=== PATIENT | female | born 1995 | race Caucasian/White ===

== ENCOUNTER 2017-09-10 12:50 | Observation (INO) | payer OTHER ==
[~2017-09-10] VITALS: Ht 154.9 cm; Wt 99.3 kg
== END 2017-09-10 13:55 | disposition home or self-care (01) ==
LOC: SPU 12:50
PROVIDERS: ADMIT Obstetrics & Gynecology; ATTEND Obstetrics & Gynecology
DX: Z34.93 Encounter for supervision of normal pregnancy, unspecified, third trimester (principal); Z3A.36 36 weeks gestation of pregnancy
CPT/HCPCS: 81002; G0378

== ENCOUNTER 2017-09-12 17:45 | Observation (INO) | payer OTHER ==
[~2017-09-12] VITALS: Ht 154.9 cm; Wt 99.3 kg
[2017-09-12] MEDS ORDERED: LR 1,000 ML IV SCH (18:24)
[2017-09-12 18:51] LABS: BILIRUBIN,URINE NEGATIVE (NEGATIVE); CLARITY/URINE CLEAR (CLEAR); COLOR,URINE YELLOW (YELLOW); GLUCOSE,URINE NEGATIVE (NEGATIVE); KETONES,URINE NEGATIVE (NEGATIVE); LEUKOCYTE ESTERASE ,URINE NEGATIVE (NEGATIVE); NITRITE, URINE NEGATIVE (NEGATIVE); PH,URINE 5.5 (5.0-8.0); PROTEIN URINE NEGATIVE (NEGATIVE); UROBILINOGEN,URINE 0.2 (0.2-1.0)
[2017-09-12 18:59] LABS: BLOOD, URINE TRACE (NEGATIVE)
[2017-09-12 19:00] LABS: BACTERIA,URINE FEW /HPF (None Seen); RBC,URINE 0-3 /HPF (0-3); WBC,URINE 0-3 /HPF (0-3)
[2017-09-12 19:01] LABS: MUCUS,URINE None Seen /LPF (None Seen)
[2017-09-12 19:02] LABS: BASOPHILS % (AUTO) 0.5 % (0.0-2.0); EOSINOPHILS # (AUTO) 0.1 K/uL (0.0-0.4); HEMATOCRIT 33.5 % (36-48); HEMOGLOBIN 11.4 g/dL (12.0-16.0); LYMPHOCYTES # (AUTO) 1.7 K/uL (1.0-5.5); LYMPHOCYTES % (AUTO) 19.6 % (20.5-51.5); MEAN CORPUSCULAR HEMOGLOBIN 27 pg (27-31); MEAN CORPUSCULAR HGB CONC 34 % (32-36); MEAN CORPUSCULAR VOLUME 78 fL (79.0-98.0); MONOCYTES # (AUTO) 0.5 K/uL (0.0-1.0); MONOCYTES % (AUTO) 5.3 % (1.7-9.3); NEUTROPHILS # (AUTO) 6.5 K/uL (1.8-7.7); NEUTROPHILS % (AUTO) 73.6 % (40.0-70.0); PLATELET COUNT (AUTO) 186 K/uL (130-430); RED BLOOD CELL COUNT(AUTO) 4.29 MIL/uL (4.2-6.2); RED CELL DISTRIBUTION WIDTH 17.6 % (9.0-15.0); WHITE BLOOD COUNT (AUTO) 8.8 K/uL (4.8-10.8)
== END 2017-09-12 20:45 | disposition home or self-care (01) ==
LOC: SPU 17:45
PROVIDERS: ADMIT Obstetrics & Gynecology; ATTEND Obstetrics & Gynecology
DX: O26.893 Other specified pregnancy related conditions, third trimester (principal); R10.9 Unspecified abdominal pain; Z3A.37 37 weeks gestation of pregnancy
CPT/HCPCS: 36415; 76770; 76805; 81000; 81002; 85025; G0378

== ENCOUNTER 2017-09-21 04:43 | Inpatient (IN) | payer OTHER ==
[~2017-09-21] VITALS: Ht 154.9 cm; Wt 97.5 kg
[2017-09-21] MEDS ORDERED: LR 500 ML IV ONE ×2 (04:56→08:14)
[2017-09-21] MEDS ORDERED: LR 1,000 ML IV ONE (04:56)
[2017-09-21] MEDS ORDERED: OXYTOCIN/0.9 % SODIUM CHLORIDE 1,000 ML IV SCH (04:56)
[2017-09-21] MEDS ORDERED: AMPICILLIN SODIUM 2 GM in NS 100 ML IV ONE (05:00)
[2017-09-21] MEDS ORDERED: TERBUTALINE SULFATE 1 MG/ML VIAL SUBCUT ONE (05:00)
[2017-09-21] MEDS ORDERED: AMPICILLIN SODIUM 1 GM in NS 50 ML IV SCH (05:00)
[2017-09-21] MEDS ORDERED: AMPICILLIN SODIUM 2 GM VIAL ONE (05:28)
[2017-09-21] MEDS ORDERED: NALBUPHINE HCL 10 MG/ML AMP IVP PRN (05:30)
[2017-09-21] MEDS ORDERED: NALBUPHINE HCL 10 MG/ML AMP IM PRN (05:30)
[2017-09-21] MEDS ORDERED: NALBUPHINE HCL 10 MG/ML AMP ONE (05:34)
[2017-09-21] MEDS: LR 1,000 ML IV SCH (05:44)
[2017-09-21 06:07] LABS: BASOPHILS # (AUTO) 0.1 K/uL (0.0-0.2); BASOPHILS % (AUTO) 0.7 % (0.0-2.0); EOSINOPHILS % (AUTO) 0.5 % (0.0-4.0); HEMATOCRIT 34.5 % (36-48); HEMOGLOBIN 11.6 g/dL (12.0-16.0); LYMPHOCYTES # (AUTO) 1.8 K/uL (1.0-5.5); LYMPHOCYTES % (AUTO) 20.3 % (20.5-51.5); MEAN CORPUSCULAR HEMOGLOBIN 26 pg (27-31); MEAN CORPUSCULAR HGB CONC 34 % (32-36); MEAN CORPUSCULAR VOLUME 78 fL (79.0-98.0); MONOCYTES # (AUTO) 0.4 K/uL (0.0-1.0); MONOCYTES % (AUTO) 4.5 % (1.7-9.3); NEUTROPHILS # (AUTO) 6.3 K/uL (1.8-7.7); PLATELET COUNT (AUTO) 150 K/uL (130-430); RED CELL DISTRIBUTION WIDTH 17.4 % (9.0-15.0); WHITE BLOOD COUNT (AUTO) 8.6 K/uL (4.8-10.8)
[2017-09-21 07:01] VITALS: BP_SYST 138
[2017-09-21] MEDS ORDERED: FENT2mCg/mL-ROPIVA0.2%/NS EPID 150 ML EP SCH (08:15)
[2017-09-21] MEDS ORDERED: ROPIVACAINE 0.2% 0 ML ONE (08:19)
[2017-09-21] MEDS ORDERED: fentaNYL CITRATE/PF 100 MCG/2 ML AMP ONE ×2 (08:19→15:20)
[2017-09-21] MEDS: TRANEXAMIC ACID 650 MG TABLET PO SCH ×2 (09:00→16:26)
[2017-09-21] MEDS ORDERED: TRANEXAMIC ACID 650 MG TABLET PO ONE (09:00)
[2017-09-21] MEDS ORDERED: CEFAZOLIN 2 GM IVPB PREMIX 50 ML IV ONE ×2 (13:00→13:07)
[2017-09-21] MEDS ORDERED: NALOXONE HCL 1 MG in NACL 0.9% 1,000 ML IV PRN ×4 (13:35)
[2017-09-21] MEDS ORDERED: LR 1,000 ML IV SCH ×2 (13:35→15:16)
[2017-09-21] MEDS ORDERED: DIPHENHYDRAMINE INJ 50 MG/ML VIAL IVP PRN (13:45)
[2017-09-21] MEDS ORDERED: NALOXONE HCL 0.4 MG/ML AMP (NARCAN) IVP PRN ×3 (13:45)
[2017-09-21] MEDS ORDERED: ONDANSETRON HCL 4 MG/2 ML VIAL IVP PRN (13:45)
[2017-09-21] MEDS ORDERED: MEPERIDINE HCL/PF 25 MG/ML DISP.SYRIN IVP PRN ×2 (13:45)
[2017-09-21] MEDS ORDERED: MORPHINE SULFATE 10 MG/ML VIAL IVP PRN (13:45)
[2017-09-21] MEDS ORDERED: MORPHINE 4 MG/ML INJ. SYRINGE IVP PRN ×2 (13:45)
[2017-09-21] MEDS ORDERED: KETOROLAC TROMETHAMINE 60 MG/2 ML VIAL IM PRN (13:45)
[2017-09-21] MEDS ORDERED: DIPHENHYDRAMINE HCL 50 MG CAPSULE PO PRN (13:45)
[2017-09-21] MEDS ORDERED: OXYTOCIN/0.9 % SODIUM CHLORIDE 1,000 ML IV ONE ×2 (15:16→15:49)
[2017-09-21] MEDS ORDERED: MORPHINE SULFATE 10MG/10ML PF AMP ONE (15:20)
[2017-09-21] MEDS ORDERED: ePHEDrine sulfate 50 MG/ML VIAL ONE (15:20)
[2017-09-21] MEDS ORDERED: MIDAZOLAM HCL 5 MG/5 ML VIAL IVP ONE (15:20)
[2017-09-21] MEDS ORDERED: LR 1,000 ML IV.SOLN IV ONE (15:20)
[2017-09-21] MEDS ORDERED: NS IRRIG SOLN 1000 ML IR ONE (15:20)
[2017-09-21] MEDS ORDERED: ONDANSETRON HCL 4 MG/2 ML VIAL ONE (15:20)
[2017-09-21] MEDS ORDERED: SUCCINYLCHOLINE CHLORIDE 20 MG/ML(QUELICIN) ONE (15:20)
[2017-09-21] MEDS ORDERED: PROPOFOL 200MG/ 20ML VIAL (DIPRIVAN) IV ONE (15:20)
[2017-09-21] MEDS ORDERED: LIDOCAINE 2%, 20 ML MDV ONE (15:20)
[2017-09-21] MEDS ORDERED: SEVOFLURANE 15 MIN GAS INH ONE (15:20)
[2017-09-21] MEDS ORDERED: fentaNYL CITRATE 250 MCG/5 ML AMP ONE (15:20)
[2017-09-21] MEDS ORDERED: VASOPRESSIN 20 UNITS/ML VIAL IV ONE (15:20)
[2017-09-21] MEDS ORDERED: ROCURONIUM BROMIDE 10 MG/ML (ZEMURON) ONE (15:20)
[2017-09-21] MEDS ORDERED: ANUSOL 1 EA SUPP.RECT (PREPARATION H) RC PRN (15:30)
[2017-09-21] MEDS ORDERED: DIPH-TET-PERTUS Vaccine 0.5 ML VIAL (ADACEL) I.M. PRN (15:30)
[2017-09-21] MEDS ORDERED: ACETAMINOPHEN 325 MG TABLET PO PRN (15:30)
[2017-09-21] MEDS ORDERED: SIMETHICONE 80 MG TAB.CHEW PO PRN (15:30)
[2017-09-21] MEDS ORDERED: SENNOSIDES/DOCUSATE SODIUM 1 TAB TABLET(SENOKOT-S) PO PRN (15:30)
[2017-09-21] MEDS ORDERED: BISACODYL 10 MG/SUPPOSITORY RC PRN (15:30)
[2017-09-21] MEDS ORDERED: MEASLES,MUMPS&RUBELLA VACC/PF 12500 UNIT/0.5 ML VIAL SUBQ PRN (15:30)
[2017-09-21] MEDS ORDERED: DOCUSATE SODIUM 100 MG CAPSULE PO PRN (15:30)
[2017-09-21] MEDS ORDERED: LANOLIN 7 GM OINT. TP PRN (15:30)
[2017-09-21] MEDS ORDERED: RHO(D) IMMUNE GLOBULIN/MALTOSE 1500 UNITS/1.3 ML (WINHRO) IM PRN (15:30)
[2017-09-21 15:35] VITALS: BP_SYST 128
[2017-09-21] MEDS ORDERED: OXYCODONE/ACETAMINOPHEN 5-325 TABLET PO PRN ×2 (17:45)
[2017-09-21] MEDS ORDERED: hydrALAZINE HCL 20 MG/ML VIAL IVP ONE (20:00)
[2017-09-21] MEDS ORDERED: TEMAZEPAM 15 MG CAPSULE PO PRN (21:00)
[2017-09-22] MEDS: TRANEXAMIC ACID 650 MG TABLET PO SCH ×3 (01:04→19:30)
[2017-09-22] MEDS: IBUPROFEN 600 MG TABLET PO SCH ×3 (06:00→18:00)
[2017-09-22 06:31] LABS: BASOPHILS % (AUTO) 0.2 % (0.0-2.0); EOSINOPHILS % (AUTO) 0.2 % (0.0-4.0); HEMOGLOBIN 7.8 g/dL (12.0-16.0); LYMPHOCYTES # (AUTO) 0.9 K/uL (1.0-5.5); LYMPHOCYTES % (AUTO) 14.4 % (20.5-51.5); MEAN CORPUSCULAR HEMOGLOBIN 27 pg (27-31); MEAN CORPUSCULAR HGB CONC 34 % (32-36); MEAN CORPUSCULAR VOLUME 79 fL (79.0-98.0); MONOCYTES # (AUTO) 0.4 K/uL (0.0-1.0); NEUTROPHILS # (AUTO) 5.3 K/uL (1.8-7.7); NEUTROPHILS % (AUTO) 79.2 % (40.0-70.0); PLATELET COUNT (AUTO) 101 K/uL (130-430); RED BLOOD CELL COUNT(AUTO) 2.93 MIL/uL (4.2-6.2); RED CELL DISTRIBUTION WIDTH 17.8 % (9.0-15.0); WHITE BLOOD COUNT (AUTO) 6.6 K/uL (4.8-10.8)
[2017-09-22] MEDS: LR 1,000 ML IV SCH (06:45)
[2017-09-22] MEDS ORDERED: SODIUM BICARBONATE 4% (NEUT) 5 ML VIAL INJ ONE (07:06)
[2017-09-22] MEDS ORDERED: LIDOCAINE PF 2%, 200 MG/10 ML AMPUL.LUER (EPIDURAL) INJ ONE (07:07)
[2017-09-23] MEDS: TRANEXAMIC ACID 650 MG TABLET PO SCH (03:22)
[2017-09-23] MEDS: IBUPROFEN 600 MG TABLET PO SCH ×3 (06:20→12:10)
[2017-09-23] MEDS ORDERED: TRANEXAMIC ACID 650 MG TABLET PO SCH (09:00)
[2017-09-23] MEDS ORDERED: FERROUS SULFATE 325 MG TABLET.DR PO SCH (09:00)
== END 2017-09-23 15:25 | disposition home or self-care (01) | DRG 765 ==
LOC: SPU 04:43
PROVIDERS: ADMIT Obstetrics & Gynecology; ATTEND Obstetrics & Gynecology
PROC: 10D00Z1 Extraction of Products of Conception, Low, Open Approach (ICD-10-PCS; principal; 2017-09-21 12:30)
DX: O99.824 Streptococcus B carrier state complicating childbirth (principal); D68.0 Von Willebrand disease; O69.81X0 Labor and delivery complicated by cord around neck, without compression, not applicable or unspecified; O62.1 Secondary uterine inertia; O99.02 Anemia complicating childbirth; D64.9 Anemia, unspecified; O99.12 Other diseases of the blood and blood-forming organs and certain disorders involving the immune mechanism complicating childbirth; O77.0 Labor and delivery complicated by meconium in amniotic fluid; O72.1 Other immediate postpartum hemorrhage; Z3A.38 38 weeks gestation of pregnancy; Z37.0 Single live birth; Z80.3 Family history of malignant neoplasm of breast
CPT/HCPCS: 36415; 85025; 86592; 86886; 86900; 86901; 94760; J0290; J0330; J0690; J1885; J2001; J2250; J2270; J2274; J2300; J2310; J2405; J2590; J2704; J2795; J3010; J3490; J7030; J7060; J7120